=== PATIENT | female | born 1945 | race Caucasian/White ===

== ENCOUNTER 2025-03-06 07:59 | Observation (INO) ==
--- NOTE | 2025-02-27 09:32 | Anesthesiology Consultation ---
Date of Service February 27, 2025 Assessment & Plan (1) Encounter for pre-operative examination: Chart Review Chart Review: Pending: Refer to Additional Notes / Consult section (pending PCP optimization and response re: urine culture and preop EKG ) and Patient NOT seen in Pre Admission Testing - Awaiting PCP clearance- please fax 02/16/25 labs, urine culture, EKG and CXR to PCP for review along with optimization note re: abnormal EKG and UA (Joy Bush PA-C- [facility]- fax # [phone]) -Infectious Disease screening: Per PAT nursing assessment on 02/21/25. No known i nfectious disease contacts in past 10 days or current infectious disease symptoms. No recent travel outside the country. History Surgery Operation Date: 03/06/25 11:55 Proposed Procedures p Anterior Cervical Discectomy and Fusion C5-C7 - Nando Peters DO Height/Weight Height: 5 ft 4 in Weight: 73.482 kg Allergies Allergy/AdvReac Type Severity Reaction Status Date / Time No Known Allergies Allergy Verified 02/21/25 12:41 Medications Home Medications Medication Instructions Recorded Confirmed Last Taken cholecalciferol (vitamin D3) 100 1,000 unit PO DAILY 02/21/25 02/21/25 Unknown mcg (4,000 unit) capsule cyclobenzaprine 10 mg tablet 10 mg PO TID PRN muscle relaxant 02/21/25 02/21/25 Unknown levothyroxine 50 mcg tablet 50 mcg PO QAM 02/21/25 02/21/25 Unknown (Synthroid) loperamide 2 mg capsule (Imodium 2 mg PO BID 02/21/25 02/21/25 Unknown A-D) lorazepam 0.5 mg tablet (Ativan) 0.5 mg PO BID PRN Anxiety 02/21/25 02/21/25 Unknown magnesium 200 mg tablet 200 mg PO DAILY 02/21/25 02/21/25 Unknown meloxicam 15 mg tablet 15 mg PO QAM 02/21/25 02/21/25 Unknown methylprednisolone 2 mg tablet 2 mg PO QAM 02/21/25 02/21/25 Unknown (Medrol) metoprolol succinate 100 mg 100 mg PO QAM 02/21/25 02/21/25 Unknown tablet,extended release 24 hr (Toprol XL) potassium 99 mg tablet 99 mg PO DAILY 02/21/25 02/21/25 Unknown zolpidem 10 mg tablet (Ambien) 10 mg PO HS 02/21/25 02/21/25 Unknown Past Medical History Medical History Anxiety Frequent urination saw a urologist in [place], no findings HX: breast cancer (2004) b/l mastectomy/ chemo Hypertension Hypothyroid IBS (irritable bowel syndrome) Insomnia Osteoarthritis Past Surgical History Surgical History History of lumbar fusion (2016) x3 "shaving" of discs in lumbar area ~ 2000 2016: L4-L5-L6 Jul 2024- Lumber surgery History of lumbar surgery (07/2024) x3: 2000:"shaving" of discs in lumbar area 2017: L4-L5-L6 fusion Jul 2024- "went in side ways with a screw" History of total left knee replacement (2021) Hx laparoscopic cholecystectomy (1975) Hx of bilateral mastectomy (2004) chemo Hx of breast augmentation (2004) bilateral implants, post mastectomy Hx of colonoscopy Hx of foot surgery right foot, bunion Social History Smoking Status: Former smoker Do You Dip or Chew Tobacco: No Smoking End Date: quit 30 years ago Hx Alcohol Use: No Hx Substance Use: No substance use type: does not use Lab Results Anesthesia Preop Results Results Anesthesia Widget: WBC 5.54 K/ul (4.8-10.8) 02/16/25 Hgb 12.7 g/dl (12.0-16.0) 02/16/25 Hct 39.2 % (37.0-47.0) 02/16/25 Plt 212 K/uL (130-400) 02/16/25 Na 142 mmol/L (136-145) 02/16/25 K 4.4 mmol/L (3.5-5.1) 02/16/25 Cl 106 mmol/L (98-107) 02/16/25 CO2 30 mmol/L (21-32) 02/16/25 BUN 19 mg/dl (6-23) 02/16/25 Creat 0.73 mg/dl (0.6-1.2) 02/16/25 Glucose Level 98 mg/dl (70-99(Fasting)) 02/16/25 PT 10.3 Seconds (9.0-12.0) 02/16/25 PTT 25 Seconds (21-31) 02/16/25 INR 0.9 (0.9-1.1) 02/16/25 Urine Color Yellow 02/16/25 Urine Appearance Cloudy (Clear) A 02/16/25 Urine pH 5.0 (4.5-7.5) 02/16/25 Urine Specific [place] 1.017 (1.000-1.030) 02/16/25 Urine Protein Negative (Negative) 02/16/25 Urine Glucose (UA) Negative (Negative) 02/16/25 Urine Ketones Negative (Negative) 02/16/25 Urine Blood Negative (Negative) 02/16/25 Urine Nitrite Positive (Negative) A 02/16/25 Urine Bilirubin Negative (Negative) 02/16/25 Urine Urobilinogen Negative (Negative) 02/16/25 Urine Leukocyte Esterase 2+ (Negative) H 02/16/25 Urine WBC (Auto) >50 /hpf (0-5) H 02/16/25 Urine RBC (Auto) 0-2 /hpf (0-2) 02/16/25 Urine Hyaline Casts (Auto) 0-2 /lpf (0-2) 02/16/25 Urine Epithelial Cells (Auto) 3-5 /hpf (0-2) H 02/16/25 Urine Bacteria (Auto) 4+ (None Seen) H 02/16/25 Urine Yeast Present (None Prsent) A 02/16/25 Blood Type O Positive 02/16/25 Antibody Screen NEGATIVE 02/16/25 Testing Laboratory Results 02/16/25= URINE CULTURE: E coli, > 100,000 CFU/ml (will leave to surgeon's discretion to review and determine how to proceed (surgeon's office informed); will also fax results to PCP to review at 02/28/25 PCP appt) Electrocardiogram Date: 02/16/25 SR with PACs at 60bpm T wave abnormality, consider lateral ischemia (Has appt with PCP 02/28/25- will fax for PCP review along with optimization note (surgeon's office informed)) Chest X-Ray Date: 02/16/25 FINDINGS: There is moderate cardiomegaly without pulmonary vascular congestion. There is mild elevation of the right hemidiaphragm. There is mild stranding opacity in the lung bases which likely represents scarring or atelectasis. No other consolidation or pleural effusion. IMPRESSION: Likely scarring or mild atelectasis in the lung bases.
[2025-03-06] MEDS ORDERED: ATROPINE SULFATE 0.1 MG/ML 10ML SYR IV PRN (08:37)
[2025-03-06] MEDS ORDERED: ONDANSETRON INJ 2 MG/ML 2 ML VIAL IV PRN ×2 (08:37→13:11)
[2025-03-06] MEDS ORDERED: HYDROmorphone INJ 1 MG/ML SYRINGE IV PRN ×2 (08:37→13:11)
[2025-03-06] MEDS: ACETAMINOPHEN 500 MG TAB PO SCH (08:39)
[2025-03-06] MEDS: GABAPENTIN 300 MG CAP PO SCH (08:39)
[2025-03-06] MEDS: LR 60ML/HR IV SCH (08:39)
[2025-03-06] MEDS: CeleBREX 200 MG CAP PO SCH (08:39)
[2025-03-06] MEDS: LR 15ML/HR IV SCH (08:40)
[2025-03-06] MEDS ORDERED: MIDAZOLAM HCL 1 MG/ML 2ML VIAL ONE (09:14)
[2025-03-06] MEDS ORDERED: LIDOCAINE 2% 2 ML VIAL/AMP(20MG/ML) INFIL ONE (09:14)
[2025-03-06] MEDS ORDERED: DEXAMETHASONE SOD INJ 4 MG/ML VIAL ONE (09:14)
[2025-03-06] MEDS ORDERED: ONDANSETRON INJ 2 MG/ML 2 ML VIAL ONE (09:14)
[2025-03-06] MEDS ORDERED: PROPOFOL IV EMULSION 10 MG/ML 20 ML VIAL IV ONE (09:14)
[2025-03-06] MEDS ORDERED: ROCURONIUM BROMIDE 10 MG/ML 5 ML VIAL IV ONE (09:14)
--- NOTE | 2025-03-06 09:53 | History & Physical Bridge Note ---
Date of Service March 06, 2025 History & Physical Bridge Note I have examined the patient, reviewed the History & Physical and in the interval since the performance of the History & Physical I have noted the following changes of clinical significance: no changes noted
--- NOTE | 2025-03-06 09:54 | History & Physical Report ---
Date of Service March 06, 2025 Assessment & Plan (1) Cervical spondylosis with radiculopathy: Plan: Anterior cervical discectomy and fusion C5-C7 History of Present Illness Chief Complaint: Neck and arm pain Primary Care Provider: Joy Bush PA-C This is a 79-year-old female presents for chronic persistent neck and arm pain and failing course of nonoperative care is here for surgical invention. Allergies Allergy/AdvReac Type Severity Reaction Status Date / Time adhesive tape Allergy Rash Verified 03/06/25 08:21 Home Medications Medication Instructions Recorded Confirmed Type cholecalciferol (vitamin D3) 100 1,000 unit PO BID 02/21/25 03/06/25 History mcg (4,000 unit) capsule cyclobenzaprine 10 mg tablet 10 mg PO TID PRN muscle relaxant 02/21/25 03/06/25 History levothyroxine 50 mcg tablet 50 mcg PO QAM 02/21/25 03/06/25 History (Synthroid) loperamide 2 mg capsule (Imodium 2 mg PO BID 02/21/25 03/06/25 History A-D) lorazepam 0.5 mg tablet (Ativan) 0.5 mg PO BID PRN Anxiety 02/21/25 03/06/25 History magnesium 200 mg tablet 200 mg PO DAILY 02/21/25 03/06/25 History meloxicam 15 mg tablet 15 mg PO QAM 02/21/25 03/06/25 History methylprednisolone 2 mg tablet 2 mg PO QAM 02/21/25 03/06/25 History (Medrol) metoprolol succinate 100 mg 100 mg PO QAM 02/21/25 03/06/25 History tablet,extended release 24 hr (Toprol XL) potassium 99 mg tablet 99 mg PO DAILY 02/21/25 03/06/25 History zolpidem 10 mg tablet (Ambien) 10 mg PO HS 02/21/25 03/06/25 History Past Med/Surg History Problem List (Updated 03/06/25 @ 09:54 by Nando Peters DO) Cervical spondylosis with radiculopathy Encounter for pre-operative examination Medical History Anxiety Frequent urination saw a urologist in [place], no findings HX: breast cancer (2004) b/l mastectomy/ chemo Hypertension Hypothyroid IBS (irritable bowel syndrome) Insomnia Osteoarthritis Surgical History History of lumbar fusion (2016) x3 "shaving" of discs in lumbar area ~ 2000 2017: L4-L5-L6 Jul 2024- Lumber surgery History of lumbar surgery (07/2024) x3: 2000:"shaving" of discs in lumbar area 2017: L4-L5-L6 fusion Jul 2024- "went in side ways with a screw" History of total left knee replacement (2021) Hx laparoscopic cholecystectomy (1975) Hx of bilateral mastectomy (2004) chemo Hx of breast augmentation (2004) bilateral implants, post mastectomy Hx of colonoscopy Hx of foot surgery right foot, bunion Social History Smoking Status: Former smoker Tobacco Type: Cigarettes Smoking End Date: quit 30 years ago; Second Hand Exposure: No; Do You Dip or Chew Tobacco: No; Tobacco Cessation Education Requested by Patient: No Hx Alcohol Use: No Hx Substance Use: No Preferred Language: [place] Communication Ability: Effective [place] Required: No Beliefs That Will Affect Care: None Current Living Situation: Spouse Other Information That Helps Us Care for You: No Feels Safe at Home: Yes Safety Concerns: Feels Safe At This Time Assistive Devices: Cane Physical Exam Physical Exam: Patient is alert and oriented heart regular rhythm Lungs clear Results & Data Results & Data Vital Signs (Past 12 Hours) Vital Signs Temp Pulse Resp BP Pulse Ox O2 Del Method 03/06/25 08:15 36.9 C 71 18 145/77 H 96 Room Air
[2025-03-06] MEDS ORDERED: PHENYLEPHRINE HCL 10 MG/ML VIAL ONE (11:08)
[2025-03-06] MEDS: ceFAZolin 330 MG/ML 1 GM VIAL ONE (11:42)
[2025-03-06] MEDS ORDERED: SUGAMMADEX SODIUM 200 MG/2 ML VIAL IV ONE (11:44)
[2025-03-06] MEDS: FLOSEAL HEMOSTATIC MATRIX 10ML TOP ONE (11:44)
--- NOTE | 2025-03-06 11:51 | Operative Report ---
Post Operative Report Pre & Post Diagnosis Operation Date: 03/06/25 09:35 Pre-Op Diagnosis: Cervical spinal stenosis with myeloradiculopathy Post-Op Diagnosis: Same I identified the patient and participated in the time-out.: Yes Procedure Operation Date: 03/06/25 09:35 Actual Procedures #1 anterior cervical corpectomy C6. #2 anterior cervical arthrodesis C5-C7. #3 placement of Spira 23 mm cage C5-C7. #4 placement locally harvested morselized autograft combined with os design in the cage. #5 application of K2 M plate and screws from C5-C7. Surgeon Nando Peters, Affiliate Marketing Specialist Joy Estevez Estimated Blood Loss 100 Findings Consistent with Post-Op Diagnosis Specimens None Indications This is a 79-year-old female presents by much diagnosis after failing course of nonoperative care is here for surgical invention. Description of Procedure Patient was met with identified informed consent obtained. Patient was then taken to the operative suite underwent intubation placed in a supine position on the Johnny table with head Mckeon ochoa. All bony prominences well-padded eyes inspected to ensure no external pressure placed upon them. This point the anterior cervical spine was prepped and draped in a sterile fashion. With the assistance of fluoroscopy defy the C C6 vertebral body and a transverse incision was placed along the right anterior aspect of the cervical spine overlying this region. Blunt dissection with the assistance of bipolar electrocautery per formed down to exposing the anterior cervical spine from C3 5 to C7. Detailed retaining retractor was placed. Then performed a complete discectomy of C5-C6 out to the ankle oncology with os bilaterally followed by C6-C7 discectomy out to the uncovertebral joints bilaterally. Cruger distraction pins were then placed in C5 and C7 to distract across the C6 vertebral body. Removal of posterior disc at C6-C7 required excess removal of the vertebral body of C6 to adequately decompress the canal. Subsequently converted to a corpectomy versus an ACDF. I did remove the entire body of C6 including all posterior annular fibers and longitudinal ligament with bilateral foraminotomies for complete decompression. The endplates were then burred to subcortical bleeding bone and a 23 mm spiral cage filled with locally harvested morselized autograft and os design bone graft tapped in position. Distracting apparatus was removed and a K2 M plate and screws applied with the assistance of fluoroscopy. The incision was then rodrigo irrigated explored to ensure no damage to surrounding structures remaining bleeding. 10 round KRISTY drain inserted. The incision was then closed with 2 Vicryl in the fascia and a 4-0 Monocryl for final skin closure. Steri- Strips sterile dressing placed. Patient waken taken to PACU stable condition. Please note Joy Estevez was present at the entire procedure of all the patient positioning complex portion of the surgery and fashion closure. Im ordering 10 grams of Collagen Powder ([facility] A6010 Primary Dressing) and 10 bordered super absorbent ([facility] A6196 Secondary Dressing) to treat an incision wound that was caused by a spine procedure. The incision is approximately 2 cm(W) x 4 cm(L) down to the spinal column and epidural space 2 cm (D) in size and is a full thickness wound showing no signs of infection. Collagen comes in 1 gram packets so 10 packets were ordered. Given the size of the wound, with moderate exudate I chose to order a 10 day supply. The patient will be provided instructions for proper application of the collagen wound kit. The patient will be asked to apply the collagen powder daily and then cover it with sterile dressings dispen sed. Collagen was selected as I expect the collagen to attract monocytes and fibroblasts, act as a sacrificial substrate for MMPs, and ultimately proved a matrix for tissue and vessel growth. The collagen will act as a primary dressing in this scenario. It is medically necessary for proper healing of these wounds to improve bioavailability and contact with each wound surface, this is also to help prevent infection of wounds and promote healing ultimately leading to a better healing outcome and limit the risk of infection. I attest to the content of the Intraoperative Record and any orders documented therein. Any exceptions are noted below.
[2025-03-06] MEDS: HYDROmorphone INJ 2 MG/ML SYR/VIAL IV PRN (12:11)
--- NOTE | 2025-03-06 12:53 | Fluoroscopy Report ---
FL cervical 2-3V CLINICAL HISTORY: ACDF C5-C7 COMPARISON STUDY: None FLUOROSCOPY TIME: 16 seconds FLUOROSCOPY IMAGES: 3 EXPOSURE DOSE: 2 mGy FINDINGS: Fluoroscopy was provided for lower cervical spine fusion. IMPRESSION: Intraoperative fluoroscopy. ACT 112: Negative or not required by law. Electronically signed by: Alfonso Neal M.D. 03/06/2025 12:52 PM
[2025-03-06] MEDS ORDERED: HYDROmorphone INJ 0.5 MG/0.5 ML SYR IV PRN (13:11)
[2025-03-06] MEDS ORDERED: dexAMETHasone 8 MG in SYRINGE 0 ML IV PRN (13:11)
[2025-03-06] MEDS ORDERED: DO NOT ADMINISTER FLU VACCINE PRN (13:11)
[2025-03-06] MEDS ORDERED: RACEPINEPHRINE 2.25% NEBU SOLN 0.5 ML VIAL INH PRN (13:11)
[2025-03-06] MEDS ORDERED: ONDANSETRON 4 MG OD TAB PO PRN (13:11)
[2025-03-06] MEDS ORDERED: ACETAMINOPHEN 1,000 MG/100 ML VIAL IV PRN (13:11)
[2025-03-06] MEDS ORDERED: NALOXONE HCL 0.4 MG/1 ML VIAL/CARP IV PRN (13:11)
[2025-03-06] MEDS ORDERED: MAGNESIUM HYDROXIDE SUSP 30 ML UDC PO PRN (13:11)
[2025-03-06] MEDS ORDERED: PROMETHAZINE 12.5 MG/50.5 ML BAG IV PRN (13:11)
[2025-03-06] MEDS ORDERED: METOCLOPRAMIDE HCL INJ 5 MG/ML 2 ML VIAL IV PRN (13:11)
[2025-03-06] MEDS ORDERED: ACETAMINOPHEN 500 MG TAB PO PRN (13:11)
[2025-03-06] MEDS ORDERED: DO NOT ADMINISTER PNEUMOCOCCAL VACCINE PRN (13:11)
[2025-03-06] MEDS ORDERED: LORazepam 0.5 MG TAB PO PRN (13:11)
[2025-03-06] MEDS ORDERED: ALUMINUM/MAGNESIUM SUSP 30 ML UDC PO PRN (13:11)
[2025-03-06] MEDS ORDERED: SOD PHOSPHATE/SOD BIPHOSPHATE ENEMA 132 ML BTL PR PRN (13:11)
[2025-03-06] MEDS ORDERED: diphenhydrAMINE Capsule 25 MG CAP PO PRN (13:11)
[2025-03-06] MEDS ORDERED: FAMOTIDINE 20 MG TAB PO PRN (13:11)
--- NOTE | 2025-03-06 13:41 | Anesthesiology Progress Note ---
Date of Service March 06, 2025 Anesthesia Post Procedure Vital Signs Vital Signs: Temp Pulse Pulse Resp BP Pulse Ox O2 Del Method 03/06/25 13:32 16 95 Nasal Cannula 03/06/25 13:19 36.7 C 73 14 153/77 H 95 Nasal Cannula 03/06/25 13:00 36.5 C 76 16 144/71 H 95 Nasal Cannula 03/06/25 12:50 76 12 158/80 H 95 Nasal Cannula 03/06/25 12:40 75 14 169/79 H 97 Oxymask 03/06/25 12:30 77 16 178/81 H 96 Oxymask 03/06/25 12:20 75 20 176/86 H 98 Oxymask 03/06/25 12:10 75 20 180/99 H 95 Oxymask 03/06/25 12:03 36.7 C 75 16 175/82 H 96 Oxymask 03/06/25 08:15 36.9 C 71 18 145/77 H 96 Room Air O2 Flow Rate 03/06/25 13:32 2 03/06/25 13:19 2 03/06/25 13:00 2 03/06/25 12:50 2 03/06/25 12:40 3 03/06/25 12:30 3 03/06/25 12:20 6 03/06/25 12:10 6 03/06/25 12:03 6 03/06/25 08:15 Pain Intensity Lower Neck: Pain Intensity: 4 Anterior Neck: Pain Intensity: 2 Transfer of Care Handoff Completed per policy Notes Mental Status: alert / awake / arousable Patient Amnestic to Procedure: Yes Nausea / Vomiting: adequately controlled Pain: adequately controlled Airway Patency, RR, SpO2: stable & adequate BP & HR: stable & adequate Hydration State: stable & adequate Anesthetic Complications: no major complications apparent and Pt Satisfied with anesthetic care
[2025-03-06] MEDS: LACTATED RINGER'S 1,000 ML IV SCH (14:15)
[2025-03-06] MEDS: dexAMETHasone 6 MG in SYRINGE 0 ML IV SCH (14:44)
--- NOTE | 2025-03-06 16:34 | Hospitalist Consultation ---
Date of Consultation March 06, 2025 Assessment & Plan (1) Cervical spondylosis with radiculopathy: Status post C6 corpectomy on 03/06/2025 Minimal pain at the neck but management will be done by the orthospine Denies any radiculopathic pain (2) Hypothyroid: Continue replacement (3) Hypertension: Blood pressure remains stable and will continue with current blood pressure medications (4) IBS (irritable bowel syndrome): Not having any symptoms (5) Anxiety: Plan DVT prophylaxis- as per orthospine History of Present Illness Reason for Consultation: Medical management following C6 corpectomy Attending Physician: Nando Peters, DO History of Present Illness She is a 79-year old female with significant past medical history of hypertension and hypothyroidism apparently underwent C6 corpectomy today by Dr. Peters. She still has some numbness and tingling in the extremities which have been improving but complains to have neck pain and denies any other significant symptoms. Allergies Allergy/AdvReac Type Severity Reaction Status Date / Time adhesive tape Allergy Rash Verified 03/06/25 08:21 Home Medications Medication Instructions Recorded Confirmed Type cholecalciferol (vitamin D3) 100 1,000 unit PO BID 02/21/25 03/06/25 History mcg (4,000 unit) capsule cyclobenzaprine 10 mg tablet 10 mg PO TID PRN muscle relaxant 02/21/25 03/06/25 History levothyroxine 50 mcg tablet 50 mcg PO QAM 02/21/25 03/06/25 History (Synthroid) loperamide 2 mg capsule (Imodium 2 mg PO BID 02/21/25 03/06/25 History A-D) lorazepam 0.5 mg tablet (Ativan) 0.5 mg PO BID PRN Anxiety 02/21/25 03/06/25 History magnesium 200 mg tablet 200 mg PO DAILY 02/21/25 03/06/25 History meloxicam 15 mg tablet 15 mg PO QAM 02/21/25 03/06/25 History methylprednisolone 2 mg tablet 2 mg PO QAM 02/21/25 03/06/25 History (Medrol) metoprolol succinate 100 mg 100 mg PO QAM 02/21/25 03/06/25 History tablet,extended release 24 hr (Toprol XL) potassium 99 mg tablet 99 mg PO DAILY 02/21/25 03/06/25 History zolpidem 10 mg tablet (Ambien) 10 mg PO HS 02/21/25 03/06/25 History oxycodone 5 mg tablet 5 mg PO Q6H PRN pain #30 tabs 03/06/25 Rx tramadol 50 mg tablet 50 mg PO Q6H PRN pain, moderate 03/06/25 Rx #30 tabs Patient History Medical History Anxiety Frequent urination saw a urologist in [place], no findings HX: breast cancer (2004) b/l mastectomy/ chemo Hypertension Hypothyroid IBS (irritable bowel syndrome) Insomnia Osteoarthritis Surgical History History of lumbar fusion (2016) x3 "shaving" of discs in lumbar area ~ 2000 2017: L4-L5-L6 Jul 2024- Lumber surgery History of lumbar surgery (07/2024) x3: 2000:"shaving" of discs in lumbar area 2017: L4-L5-L6 fusion Jul 2024- "went in side ways with a screw" History of total left knee replacement (2021) Hx laparoscopic cholecystectomy (1975) Hx of bilateral mastectomy (2004) chemo Hx of breast augmentation (2004) bilateral implants, post mastectomy Hx of colonoscopy Hx of foot surgery right foot, bunion Social History Smoking Status: Former smoker Tobacco Type: Cigarettes Smoking End Date: quit 30 years ago; Second Hand Exposure: No; Do You Dip or Chew Tobacco: No; Tobacco Cessation Education Requested by Patient: No Hx Alcohol Use: No Hx Substance Use: No Preferred Language: [place] Communication Ability: Effective Animal Groomer Required: No Beliefs That Will Affect Care: None Current Living Situation: Spouse Other Information That Helps Us Care for You: No Feels Safe at Home: Yes Safety Concerns: Feels Safe At This Time Assistive Devices: Cane Review of Systems Review of Systems: All systems reviewed and are unremarkable except as noted below Physical Exam Physical Exam: Lying in bed without any acute distress with the cervical collar in place Constitutional: well developed, well nourished and + ill appearing Eyes: PERRL, conjunctivae normal, anicteric sclerae ENMT: external ear and nose normal, oropharynx normal Neck: has cervical collar in place Respiratory: no respiratory distress Auscultation: lungs clear to auscultation bilaterally Cardiovascular: Rate/Rhythm: regular rate and regular rhythm; not tachycardic Heart Sounds: normal S1 and normal S2; no murmur Gastrointestinal (Abdomen): Inspection/Auscultation: normal bowel sounds; abdomen not distended Percussion/Palpation: abdomen soft; abdomen nontender Neurologic: normal touch/pain/proprioception and moves all extremities; no focal motor deficits Lymphatic: no cervical or axillary lymphadenopathy Results & Data Results & Data Vital Signs (Past 12 Hours) Vital Signs Temp Pulse Pulse Resp BP Pulse Ox O2 Del Method 03/06/25 16:20 36.7 C 75 16 127/72 97 Room Air 03/06/25 15:30 70 16 129/70 96 Nasal Cannula 03/06/25 15:03 78 16 96 Nasal Cannula 03/06/25 14:20 36.6 C 69 16 136/74 95 Nasal Cannula 03/06/25 13:58 36.5 C 76 16 134/64 93 Nasal Cannula 03/06/25 13:41 Nasal Cannula 03/06/25 13:32 16 95 Nasal Cannula 03/06/25 13:19 36.7 C 73 14 153/77 H 95 Nasal Cannula 03/06/25 13:00 36.5 C 76 16 144/71 H 95 Nasal Cannula 03/06/25 12:50 76 12 158/80 H 95 Nasal Cannula 03/06/25 12:40 75 14 169/79 H 97 Oxymask 03/06/25 12:30 77 16 178/81 H 96 Oxymask 03/06/25 12:20 75 20 176/86 H 98 Oxymask 03/06/25 12:10 75 20 180/99 H 95 Oxymask 03/06/25 12:03 36.7 C 75 16 175/82 H 96 Oxymask 03/06/25 08:15 36.9 C 71 18 145/77 H 96 Room Air O2 Flow Rate 03/06/25 16:20 03/06/25 15:30 2 03/06/25 15:03 2 03/06/25 14:20 2 03/06/25 13:58 2 03/06/25 13:41 2 03/06/25 13:32 2 03/06/25 13:19 2 03/06/25 13:00 2 03/06/25 12:50 2 03/06/25 12:40 3 03/06/25 12:30 3 03/06/25 12:20 6 03/06/25 12:10 6 03/06/25 12:03 6 03/06/25 08:15 Medications Administered Current Inpatient Medications Acetaminophen (Acetaminophen 500 Mg Tab) 1,000 mg PO PREOP TREVON Stop: 03/06/25 18:00 Last Admin: 03/06/25 08:39 Dose: 1,000 mg Acetaminophen (Acetaminophen 500 Mg Tab) 1,000 mg PO Q8H PRN PRN Reason: MILD Pain (1,2,3) & Pre PT Stop: 04/05/25 13:10 Al Hydrox/Mg Hydrox/Simethicone (Aluminum/Magnesium Susp 30 Ml Udc) 30 ml PO Q6H PRN PRN Reason: Dyspepsia Stop: 04/05/25 13:10 Atropine Sulfate (Atropine Sulfate 0.1 Mg/Ml 10ml Syr) 0.5 mg IV Q1M PRN PRN Reason: PACU Use-HR<40 &/or Bradycardi Stop: 03/06/25 16:37 Bisacodyl (Bisacodyl 10 Mg Supp) 10 mg MI DAILY PRN PRN Reason: Constipation Stop: 04/05/25 13:10 Celecoxib (Celebrex 200 Mg Cap) 200 mg PO PREOP TREVON Stop: 03/06/25 18:00 Last Admin: 03/06/25 08:39 Dose: 200 mg Diphenhydramine HCl (Diphenhydramine Capsule 25 Mg Cap) 25 mg PO Q6H PRN PRN Reason: Allergic Rhinitis/Insomnia Stop: 04/05/25 13:10 Ephedrine Sulfate (Ephedrine Sulfate 50 Mg/Ml Amp) 5 mg IV Q5M PRN PRN Reason: PACU Use Only-SBP<90 mmHg Stop: 03/06/25 16:37 Epinephrine (Racepinephrine 2.25% Nebu Soln 0.5 Ml Vial) 0.5 ml INH NOW PRN PRN Reason: If stridor present Famotidine (Famotidine 20 Mg Tab) 20 mg PO Q12H PRN PRN Reason: Dyspepsia Stop: 04/05/25 13:10 Gabapentin (Gabapentin 300 Mg Cap) 300 mg PO PREOP TREVON Stop: 03/06/25 18:00 Last Admin: 03/06/25 08:39 Dose: 300 mg Hydromorphone HCl (Hydromorphone Inj 1 Mg/Ml Syringe) 0.25 mg IV Q5M PRN PRN Reason: PACU Use Only-Pain Stop: 03/06/25 16:37 Hydromorphone HCl (Hydromorphone Inj 0.5 Mg/0.5 Ml Syr) 0.5 mg IV Q3H PRN PRN Reason: MODERATE Pain(4,5,6)/Pre PT Stop: 03/20/25 13:10 Hydromorphone HCl (Hydromorphone Inj 1 Mg/Ml Syringe) 1 mg IV Q3H PRN PRN Reason: SEVERE Pain (7,8,9,10) Stop: 03/20/25 13:10 Hydroxyzine HCl (Hydroxyzine Hcl 25 Mg Tab) 25 mg PO Q8H PRN PRN Reason: Anxiety Stop: 04/05/25 13:10 Lactated Ringer's (Lr) 1,000 mls @ 15 mls/hr IV .Q24H TREVON Stop: 03/07/25 05:59 Last Infusion: 03/06/25 10:15 Dose: Infused Lactated Ringer's (Lr) 1,000 mls @ 60 mls/hr IV .[id number] TREVON Stop: 03/06/25 22:39 Last Admin: 03/06/25 08:39 Dose: Not Given Cefazolin Sodium (Ancef 2000mg) 2,000 mg in 15 mls @ 3.75 mls/min IV PREOP TREVON; Protocol Stop: 03/06/25 18:00 Last Admin: 03/06/25 10:40 Dose: 3.75 mls/min Dexamethasone 8 mg/ Syringe 2 mls @ 1 mls/min IV NOW PRN PRN Reason: If stridor present Lactated Ringer's (Lr) 1,000 mls @ 75 mls/hr IV .[id number] TREVON Stop: 03/07/25 08:00 Last Admin: 03/06/25 14:15 Dose: 75 mls/hr Acetaminophen (Ofirmev) 1,000 mg in 100 mls @ 400 mls/hr IV Q8H PRN PRN Reason: MILD Pain (1,2,3) & Pre PT Stop: 03/07/25 13:12 Cefazolin Sodium (Ancef 2000mg) 2,000 mg in 15 mls @ 3.75 mls/min IV Q8H [facility]; Protocol Stop: 03/07/25 02:03 Promethazine HCl (Phenergan) 12.5 mg in 50.5 mls @ 202 mls/hr IV Q6H PRN PRN Reason: Nausea And Vomiting Stop: 04/05/25 13:10 Dexamethasone 6 mg/ Syringe 1.5 mls @ 1 mls/min IV Q8H [facility] Stop: 03/07/25 06:02 Last Admin: 03/06/25 14:44 Dose: 1 mls/min Influenza Virus Vaccine Quadrival (Do Not Administer Flu Vaccine) 1 each N/A PRN PRN PRN Reason: Notification Stop: 04/05/25 13:10 Levothyroxine Sodium (Levothyroxine Sodium 50 Mcg Tablet) 50 mcg PO DAILYBB [facility] Stop: 04/06/25 06:29 Loperamide HCl (Loperamide Hcl 2 Mg Cap) 2 mg PO BID [facility] Stop: 04/05/25 20:59 Lorazepam (Lorazepam 0.5 Mg Tab) 0.5 mg PO Q8H PRN PRN Reason: Sedation/Anxiety Stop: 04/05/25 13:10 Lorazepam (Lorazepam 2 Mg/1 Ml Vial) 0.5 mg IV Q8H PRN PRN Reason: Sedation/Anxiety Stop: 04/05/25 13:10 Magnesium Hydroxide (Magnesium Hydroxide Susp 30 Ml Udc) 30 ml PO Q24H PRN PRN Reason: Constipation Stop: 04/05/25 13:10 Magnesium Oxide (Magnesium Oxide 400 Mg Tab) 200 mg PO DAILY [facility] Stop: 04/06/25 08:59 Metoclopramide HCl (Metoclopramide Hcl Inj 5 Mg/Ml 2 Ml Vial) 10 mg IV Q6H PRN PRN Reason: Nausea &/or Vomiting Stop: 04/05/25 13:10 Metoprolol Succinate (Metoprolol Succ 50mg Ext Rel Tab) 100 mg PO QAM [facility] Stop: 04/06/25 08:59 Naloxone HCl (Naloxone Hcl 0.4 Mg/1 Ml Vial/Carp) 0.1 mg IV Q5M PRN PRN Reason: Oversedation/Resp depression Stop: 04/05/25 13:10 Ondansetron HCl (Ondansetron Inj 2 Mg/Ml 2 Ml Vial) 4 mg IV ONCE PRN PRN Reason: PACU Use Only-Nausea/Vomiting Stop: 03/06/25 16:38 Ondansetron HCl (Ondansetron Inj 2 Mg/Ml 2 Ml Vial) 4 mg IV Q6H PRN PRN Reason: Nausea &/or Vomiting Stop: 04/05/25 13:10 Ondansetron HCl (Ondansetron 4 Mg Od Tab) 4 mg PO Q6H PRN PRN Reason: Nausea Stop: 04/05/25 13:10 Oxycodone HCl (Oxycodone Hcl Ir 5 Mg Tab (Immediate Release)) 5 - 10 mg PO Q4H PRN PRN Reason: MOD/SEV Pain & Pre PT Stop: 03/20/25 13:10 Last Admin: 03/06/25 14:25 Dose: 10 mg Pneumococcal Polyvalent Vaccine (Do Not Administer Pneumococcal Vaccine) 1 each N/A PRN PRN PRN Reason: Notification Stop: 04/05/25 13:10 Polyethylene Glycol (Polyethylene (Miralax) 17 Gm Pack) 17 gm PO Q6 [facility] Stop: 04/06/25 05:59 Senna/Docusate Sodium (Docusate Sodium/Senna 50/8.6mg Tab) 2 tab PO HS [facility] Stop: 04/05/25 20:59 Sodium Biphosphate/Sodium Phosphate (Sod Phosphate/Sod Biphosphate Enema 132 Ml Btl) 132 ml MI ONE PRN PRN Reason: Constipation Stop: 04/05/25 13:10 Tramadol HCl (Tramadol Hcl 50 Mg Tablet) 50 - 100 mg PO Q4H PRN PRN Reason: MOD/SEV Pain & Pre PT Stop: 04/05/25 13:10 Vitamin D (Cholecalciferol 25 Mcg (1000 Units) Tab) 25 mcg PO BID [facility] Stop: 04/05/25 20:59 Zolpidem Tartrate (Zolpidem Tartrate 5 Mg Tab) 10 mg PO HS [facility] Stop: 04/05/25 20:59
[2025-03-06] MEDS: DOCUSATE SODIUM/SENNA 50/8.6MG TAB PO SCH (21:32)
[2025-03-06] MEDS: LOPERAMIDE HCL 2 MG CAP PO SCH (21:33)
[2025-03-06] MEDS: ZOLPIDEM TARTRATE 5 MG TAB PO SCH (21:33)
[2025-03-06] MEDS: CHOLECALCIFEROL 25 MCG (1000 UNITS) TAB PO SCH (21:33)
[2025-03-07] MEDS: POLYETHYLENE (MIRALAX) 17 GM PACK PO SCH (05:21)
[2025-03-07] MEDS: LEVOTHYROXINE SODIUM 50 MCG TABLET PO SCH (05:21)
[2025-03-07] MEDS: MAGNESIUM OXIDE 400 MG TAB PO SCH (07:32)
[2025-03-07] MEDS: METOPROLOL SUCC 50MG EXT REL TAB PO SCH (07:32)
[2025-03-07 08:42] VITALS: BP 120/64; TEMP 98.6
--- NOTE | 2025-03-07 09:28 | Discharge Summary ---
Date of Service March 07, 2025 Admission HPI Per Admitting Provider This is a 79-year-old female presents for chronic persistent neck and arm pain and failing course of nonoperative care is here for surgical invention. Principal Diagnosis Cervical spinal stenosis with myeloradiculopathy Discharge Data Allergies Allergy/AdvReac Type Severity Reaction Status Date / Time adhesive tape Allergy Rash Verified 03/06/25 08:21 Consultations 03/06/25 13:11 Consult Hospitalist Routine Procedures Performed Operation Date: 03/06/25 09:35 Actual Procedures p C6 Corpectomy(Not Applicable) - Nando Peters DO Ordered Studies 03/06/25 09:35 FL cervical 2-3V Routine Hospital Course (1) Cervical spondylosis with radiculopathy: Patient went anterior cervical corpectomy and fusion tolerated this well was taken to orthopedic for postoperative. Postoperatively she is swallowing well. No hoarseness. KRISTY drain decreasing. Improved strength testing. Subsequently discharged home. Discharge orders and instructions found in chart for further review. Total Time Total Time Spent Total Time Spent (In Minutes): 20 minutes Discharge Plan Discharge Items Patient Disposition: Home - Self-Care Reason For Visit: Cervical Disc Disease, Cervical Spondylosis Discharge Diagnosis: Cervical spinal stenosis with myeloradiculopathy Activity: As commented below Non-emergency contact: Primary Care Provider Call non-emergency contact if: you have any medication questions Follow-up/Referrals: Joy Bush PA-C [Primary Care Provider] - Diet: Regular Addtl Attending Provider Instructions: ACTIVITY RECOMMENDATIONS: SELF CARE INSTRUCTIONS AFTER CERVICAL FUSIONS 1. No smoking. Smoking drastically decreases the chance of a solid fusion. 2. No bending, lifting more than 5 pounds, or twisting (roll like a log when turning in bed). 3. You may shower 3 days after surgery. Thoroughly dry wound. Do not soak in the tub. 4. Cervical collar: Must be worn at all times including sleeping. You may remove the brace only to bath, eat and if you are sitting in a recliner. 5. Please walk as much as you can for exercise. Gradually increase the distance that you walk as your endurance increases. 6. You may return to previous diet. SPECIAL CARE INSTRUCTIONS: VERY IMPORTANT TO READ AND REVIEW A. Do not take any anti-inflammatory medications (i.e. Indocin, Advil, Aspirin, Naprosyn, Aleve, Motrin, etc.) as these may inhibit the chance of a solid fusion. Tylenol is okay to take. B. Your surgical incision has been closed with a cosmetic suture under the skin that will dissolve in about 6 weeks. In 14 days, you can use a pair of clean scissors and cut the suture that is left outside of the skin at the ends of your incision. C. Complications are uncommon, but please contact us if you have any signs or symptoms of: 1. wound infection (fever higher than 102.5 degrees F, redness, separation of wound, drainage, or increasing pain from the incision) 2. blood clots in legs (pain, swelling, redness and warmth in legs) 3. urinary tract infection (fever higher than 102.5 degrees, burning upon urination or increased frequency of urination) 4. nerve problems (inability to walk on your toes or heels, numbness, loss of bowel or bladder control) 5. any other symptoms that concern you. D. Please call the office at if you have any concerns or questions about your operation or recovery. MANAGING PAIN AFTER SPINAL SURGERY 1. Narcotic medication is intended for short-term use and will be provided for surgical pain. Surgical pain usually lasts for a period of 4-6 weeks. Narcotic medication includes Percocet, Vicodin, Darvocet, Tylenol #3 or Lortab. 2. Longer-term pain is more appropriately treated with non-narcotic medication such as Tylenol ES. 3. Muscle spasm is not appropriately treated with narcotics. Muscle relaxers such as Soma, Flexeril or Skelaxin can be used along with Tylenol ES. 4. Remember that we all live with some "aches and pains". This is not unusual or uncommon after an injury or as we get older. 5. We will provide appropriate medication within the normal guidelines of their prescribed use. We will also be very cautious and aware of potential abuse and extended duration of patients' medication needs. 6. Please allow 2-3 days to process refills. Prescriptions will not be mailed but must be picked up at the office. FOLLOW UP VISIT: Keep your scheduled follow-up appointment. Any questions, please call the office at . Pending Studies at Discharge: No Stand-Alone Forms: [employer], Smoking Cessation Medications and DC Order Prescriptions: New tramadol 50 mg tablet 50 mg PO Q6H PRN (Reason: pain, moderate) Qty: 30 0RF oxycodone 5 mg tablet 5 mg PO Q6H PRN (Reason: pain) Qty: 30 0RF Continued cyclobenzaprine 10 mg Tablet 10 mg PO TID PRN (Reason: muscle relaxant) loperamide [Imodium A-D] 2 mg Capsule 2 mg PO BID meloxicam [Mobic] 15 mg Tablet 15 mg PO QAM metoprolol succinate [Toprol XL] 100 mg Tablet Extended Release 24 Hr 100 mg PO QAM Medrol 2 mg Tablet 2 mg PO QAM potassium 99 mg Tablet 99 mg PO DAILY lorazepam [Ativan] 0.5 mg Tablet 0.5 mg PO BID PRN (Reason: Anxiety) levothyroxine [Synthroid] 50 mcg Tablet 50 mcg PO QAM zolpidem [Ambien] 10 mg Tablet 10 mg PO HS magnesium 200 mg Tablet 200 mg PO DAILY Vitamin D3 100 mcg (4,000 unit) Capsule 1,000 unit PO BID Discharge Orders: Discharge Order (Routine); Ordered 03/07/25 Ordered By: Nando Peters Admission Data Admit Date/Time: 03/06/25 11:56 Attending Provider: Nando Peters Admit Provider: Nando Peters Primary Care Provider: Joy Bush Other Providers: Valeria Raya
[2025-03-07 09:48] LABS: Hematocrit (blood only) 34.8 % (37.0-47.0); Hemoglobin 11.5 g/dl (12.0-16.0); Immature Granulocytes # (auto) 0.04 K/uL (0.01-0.20); Immature Granulocytes % (auto) 0.4 %; Mean Corpuscular Hemoglobin 32.7 pg (25.0-34.0); Mean Corpuscular Volume 98.9 fL (80.0-100.0); Platelet Count 209 K/uL (130-400); RDW Standard Deviation 46.8 fL (36.4-46.3); Red Blood Count 3.52 M/uL (4.20-5.40); White Blood Count 9.95 K/ul (4.8-10.8)
[2025-03-07 10:05] LABS: Anion Gap 7.0 (3-11); Blood Urea Nitrogen 18.0 mg/dl (6-23); Calcium 8.9 mg/dl (8.6-10.3); Carbon Dioxide 30.0 mmol/L (21-32); Chloride 102.0 mmol/L (98-107); Creatinine Clr Calc Pharmacy 65.8 ml/min; Glucose 162.0 mg/dl (70-99(Fasting)); Magnesium 1.9 mg/dl (1.7-2.4); Potassium 4.0 mmol/L (3.5-5.1); Sodium 139.0 mmol/L (136-145)
[2025-03-07 11:00] VITALS: PULSE 72; RESP 18; O2SAT 95
--- NOTE | 2025-03-07 11:45 | Hospitalist Progress Note ---
Date of Service March 07, 2025 Assessment & Plan (1) Cervical spondylosis with radiculopathy: Plan: Status post C6 corpectomy on 03/06/2025 Minimal pain at the neck but management will be done by the orthospine Reports improvement in radiculopathic pain (2) Hypothyroid: Plan: Continue replacement (3) Hypertension: Plan: Blood pressure remains stable and will continue with current blood pressure medications (4) IBS (irritable bowel syndrome): Plan: Not having any symptoms (5) Anxiety: Plan DVT prophylaxis- as per orthospine Admission and Anticipated Discharge Date Admission Date: March 06, 2025 Subjective Patient was seen and examined at bedside. Patient was sitting up in chair, on room air, NAD, resting comfortably. Patient reports her radicular signs and symptoms improvement, reports operative site pain under control. Physical Exam Physical Exam: No acute distress with the cervical collar in place Constitutional: well developed and well nourished Eyes: PERRL, conjunctivae normal, anicteric sclerae ENMT: external ear and nose normal, oropharynx normal Respiratory: no respiratory distress Auscultation: lungs clear to auscultation bilaterally Cardiovascular: Rate/Rhythm: regular rate and regular rhythm; not tachycardic Heart Sounds: normal S1 and normal S2; no murmur Gastrointestinal (Abdomen): Inspection/Auscultation: normal bowel sounds; abdomen not distended Percussion/Palpation: abdomen soft; abdomen nontender Neurologic: normal touch/pain/proprioception and moves all extremities; no focal motor deficits Lymphatic: no cervical or axillary lymphadenopathy Results & Data Results & Data Vital Signs (Past 12 Hours) Vital Signs Temp Pulse Pulse Resp BP Pulse Ox O2 Del Method 03/07/25 10:59 72 18 95 Room Air 03/07/25 08:39 37.0 C 70 17 120/64 94 Room Air 03/07/25 07:15 70 18 93 Room Air 03/07/25 05:11 36.9 C 67 18 127/72 97 Nasal Cannula 03/07/25 03:30 61 18 96 Nasal Cannula 03/07/25 03:15 36.6 C 67 18 125/66 97 Nasal Cannula 03/07/25 01:13 36.7 C 70 18 112/62 96 Nasal Cannula O2 Flow Rate 03/07/25 10:59 03/07/25 08:39 03/07/25 07:15 07/16/25 05:11 2 03/07/25 03:30 2 03/07/25 03:15 2 03/07/25 01:13 2
== END 2025-03-07 12:32 | disposition home or self-care (01) | DRG 473 ==
LOC: ASU 07:59 → INTOOBSV 11:56 → 3E 11:56